=== PATIENT | male | born 1995 | race Caucasian/White ===

== ENCOUNTER 2018-03-23 06:01 | Day surgery (SDC) | payer OTHER ==
[2018-03-23] MEDS ORDERED: NEOMYC/POLYMYX/BACIT 30 GM OINT (07:12)
[2018-03-23] MEDS ORDERED: POLYMYXIN/BACITRACIN 1L IRRIG (07:12)
[2018-03-23] MEDS: POLYMYXIN/BACITRACIN 1L IRRIG (08:13)
[2018-03-23] MEDS: ROPIVACAINE 0.5 % 30 ML VIAL (11:20)
[2018-03-23] MEDS: morphine SULFATE/PF (10 MG/10 ML) INJ (11:20)
[2018-03-23] MEDS ORDERED: OXYCODONE/ACETAMINOPHEN (5/325) TAB PO (11:30)
[2018-03-23] MEDS ORDERED: LABETALOL HCL 20MG INJ IV (11:30)
[2018-03-23] MEDS ORDERED: HYDROmorphONE 1 MG/5 ML IV SYRINGE IV (11:30)
[2018-03-23] MEDS ORDERED: MIDAZOLAM 1 MG/ML 2 ML INJ IV (11:30)
[2018-03-23] MEDS ORDERED: EPHEDrine SULFATE 50 MG/5 ML SYG IV (11:30)
[2018-03-23] MEDS ORDERED: FENTAnyl 50 MCG/ML VIAL IV (11:30)
[2018-03-23] MEDS ORDERED: morphine 10 MG INJ IV (11:30)
[2018-03-23] MEDS ORDERED: METOCLOPRAMIDE 10 MG INJ IV (11:30)
[2018-03-23] MEDS ORDERED: hydrALAzine 20 MG INJ IV (11:30)
[2018-03-23] MEDS ORDERED: DIPHENHYDRAMINE 50 MG INJ IV (11:30)
[2018-03-23] MEDS ORDERED: ALBUTEROL 0.083% (NEB) 2.5 MG/3 ML AMP HHN (11:30)
[2018-03-23] MEDS: KETOROLAC 30 MG INJ IV (11:47)
[2018-03-23] MEDS: ONDANSETRON 4 MG INJ IV (11:48)
[2018-03-23] MEDS: FENTAnyl 50 MCG/ML VIAL IV ×4 (11:48→12:13)
[2018-03-23] MEDS: HYDROmorphONE 1 MG/5 ML IV SYRINGE IV ×4 (11:49→12:13)
[2018-03-23] MEDS: morphine 2 MG INJ IV (11:50)
[2018-03-23] MEDS: MEPERIDINE 25 MG INJ IV (12:12)
[2018-03-23] MEDS: OXYCODONE/ACETAMINOPHEN (5/325) TAB PO (13:33)
[2018-03-23] MEDS ORDERED: MIDAZOLAM 1 MG/ML 2 ML INJ (16:18)
[2018-03-23] MEDS ORDERED: DEXAMETHASONE 4 MG/ML 1 ML INJ (16:18)
[2018-03-23] MEDS ORDERED: ONDANSETRON 4 MG INJ (16:18)
[2018-03-23] MEDS ORDERED: PROPOFOL 20 ML (16:18)
[2018-03-23] MEDS ORDERED: LABETALOL HCL 20MG INJ ×2 (16:18)
[2018-03-23] MEDS ORDERED: ETOMIDATE 20 MG INJ (16:18)
[2018-03-23] MEDS ORDERED: BUPIVACAINE 0.5% (SDV) 30 ML INJ (16:18)
[2018-03-23] MEDS ORDERED: KETOROLAC 30 MG INJ (16:18)
== END 2018-03-23 15:15 | disposition home or self-care (01) ==
LOC: SDS 06:01
DX: S83.512D Sprain of anterior cruciate ligament of left knee, subsequent encounter (principal); S83.282D Other tear of lateral meniscus, current injury, left knee, subsequent encounter; S83.242D Other tear of medial meniscus, current injury, left knee, subsequent encounter; X58.XXXD Exposure to other specified factors, subsequent encounter
CPT/HCPCS: 29880; 82306